=== PATIENT | male | born 1955 | race Caucasian/White ===

== ENCOUNTER 2020-09-24 19:26 | Emergency (ER) | payer MEDICARE, MEDICAID ==
--- NOTE | 2020-09-24 19:56 | EDM.PDOC ---
ED HPI GENERAL MEDICAL PROBLEM - General Chief Complaint: Lower Extremity Injury/Pain Stated Complaint: Left ankle pain Time Seen by Provider: 09/24/20 19:30 Source of Information: Reports: Patient, EMS History Limitations: Reports: No Limitations - History of Present Illness INITIAL COMMENTS - FREE TEXT/NARRATIVE: Pt slipped on the ice and fell Complains of left ankle pain Has previous old injury and tibial blanca in place No other complaints No LOC Onset: Today, Sudden Duration: Minutes: Location: Reports: Lower Extremity, Left Quality: Reports: Throbbing Severity: Moderate Improves with: Reports: Immobilization Worsens with: Reports: Movement Context: Reports: Trauma Left Ankle Pain Score (Numeric/FACES): 7 Social & Family History - Tobacco Use Tobacco Use Status *Q: Current Every Day Tobacco User Years of Tobacco use: 45 Packs/Tins Daily: 1 - Caffeine Use Caffeine Use: Reports: Coffee - Recreational Drug Use Recreational Drug Use: No Review of Systems - Review of Systems Review Of Systems: See Below Constitutional: Reports: No Symptoms Ears: Reports: No Symptoms Nose: Reports: No Symptoms Mouth/Throat: Reports: No Symptoms Respiratory: Reports: No Symptoms Cardiovascular: Reports: No Symptoms GI/Abdominal: Reports: No Symptoms Genitourinary: Reports: Vaginal Bleeding Musculoskeletal: Reports: Leg Pain, Joint Pain Neurological: Reports: No Symptoms ED EXAM, GENERAL - Physical Exam Exam: See Below Exam Limited By: No Limitations General Appearance: Alert, WD/WN, Mild Distress Eye Exam: Bilateral Eye: EOMI, PERRL Ears: Normal External Exam Nose: Normal Inspection Throat/Mouth: Normal Oropharynx Head: Atraumatic Neck: Supple, Non-Tender Respiratory/Chest: Lungs Clear Cardiovascular: Regular Rate, Rhythm GI/Abdominal: Soft, Non-Tender Back Exam: Normal Inspection Extremities: Other (Left ankle with moderate swelling No deformity Tender with palpation Neurovascular intact) Neurological: Alert, Oriented, Normal Cognition Psychiatric: Normal Affect, Normal Mood Course - Vital Signs Last Recorded V/S: Last Vital Signs Temp 98.4 F 09/24/20 19:28 Pulse 94 09/24/20 19:28 Resp 14 09/24/20 19:28 BP 161/84 H 09/24/20 19:28 Pulse Ox 91 L 09/24/20 19:28 - Orders/Labs/Meds Orders: Active Orders 24 hr Category Date Time Status Ankle Min 3V Lt [CR] Stat Exams 09/24/20 19:27 Ordered - Re-Assessments/Exams Free Text/Narrative Re-Assessment/Exam: 09/24/20 19:53 Splint boot placed per nursing Will await xray report Questionable tibia irregularity Departure - Departure Time of Disposition: 20:00 Disposition: Home, Self-Care 01 Clinical Impression: Ankle pain, left Qualifiers: Chronicity: acute Qualified Code(s): M25.572 - Pain in left ankle and joints of left foot - Discharge Information *PRESCRIPTION DRUG MONITORING PROGRAM REVIEWED*: Not Applicable *COPY OF PRESCRIPTION DRUG MONITORING REPORT IN PATIENT ANNA: Not Applicable Instructions: Ankle Pain, Joint Pain, [id number], Cast or Splint Care, Adult, [id number] Referrals: Mariann Valladares NP [Primary Care Provider] - Additional Instructions: Usual pain medication as needed Follow up in clinic Ice as needed Elevate Sepsis Event Note (ED) - Evaluation Sepsis Screening Result: No Definite Risk - Focused Exam Vital Signs: Vital Signs Temp Pulse Resp BP Pulse Ox 09/24/20 19:28 98.4 F 94 14 161/84 H 91 L - My Orders Last 24 Hours: My Active Orders 09/24/20 19:27 Ankle Min 3V Lt [CR] Stat - Assessment/Plan Last 24 Hours: My Active Orders 09/24/20 19:27 Ankle Min 3V Lt [CR] Stat
== END 2020-09-24 20:45 | disposition home or self-care (01) ==
LOC: LL.ED 19:26 → MERGE 19:26 → LL.ED 20:45
DX: M25.572 Pain in left ankle and joints of left foot (principal); M79.89 Other specified soft tissue disorders; Z72.0 Tobacco use; W00.0XXA Fall on same level due to ice and snow, initial encounter
CPT/HCPCS: 73610-LT; 99284

== ENCOUNTER 2023-12-06 05:00 | Emergency (ER) | payer MEDICARE, MEDICAID ==
[2023-12-06 05:25] LABS: BASOPHILS ABSOLUTE AUTO 0.02 K/uL (0.00-0.20); BASOPHILS PERCENT AUTO 0.2 % (0.0-2.0); EOSINOPHILS ABSOLUTE AUTO 0.15 K/uL (0.00-0.50); EOSINOPHILS PERCENT AUTO 1.5 % (0.0-5.0); HEMATOCRIT 45.8 % (39.0-49.0); HEMOGLOBIN 15.5 g/dL (13.1-16.8); LYMPHOCYTES ABSOLUTE AUTO 0.85 K/uL (0.50-3.50); LYMPHOCYTES PERCENT AUTO 8.5 % (10.0-50.0); MEAN CORPUSCULAR HEMOGLOBIN 31.8 pg (28.2-33.3); MEAN CORPUSCULAR HGB CONC 33.8 g/dL (31.7-36.0); MEAN CORPUSCULAR VOLUME 93.9 fL (84.0-98.0); MONOCYTES ABSOLUTE AUTO 0.86 K/uL (0.00-1.00); MONOCYTES PERCENT AUTO 8.6 % (2.0-14.0); NEUTROPHILS ABSOLUTE AUTO 8.17 K/uL (1.40-7.00); NEUTROPHILS PERCENT AUTO 81.2 % (45.0-80.0); PLATELET COUNT,PLT 153 K/uL (150-350); RED BLOOD CELL COUNT 4.88 M/uL (4.33-5.41); RED CELL DISTRIBUTION WIDTH 13.5 % (11.2-14.1); WHITE BLOOD CELL COUNT,WBC 10.1 K/uL (4.0-10.2)
[2023-12-06 05:34] LABS: PROTHROMBIN TIME 10.2 SEC (9.0-11.1)
[2023-12-06] MEDS ORDERED: Naloxone 0.4 MG/ML SDV IVPUSH PRN (05:36)
[2023-12-06] MEDS: fentaNYL 50 MCG/ML SDV IVPUSH ONE ×2 (05:41→06:10)
[2023-12-06 05:49] LABS: ALBUMIN 3.6 g/dL (3.4-5.0); BILIRUBIN TOTAL 0.2 mg/dL (0.2-1.0); CALCIUM 8.9 mg/dL (8.5-10.1); CREATININE 0.86 mg/dL (0.51-1.17); EST CRCL DRUG DOSING (CG) 79.75 mL/min; ETHANOL BLOOD MEDICAL 0.171 g/dL (0.000-0.080); POTASSIUM,K 3.7 mmol/L (3.5-5.1); PROTEIN TOTAL,TP 7.3 g/dL (6.4-8.2)
[2023-12-06] MEDS ORDERED: Thiamine 100 MG in Sodium Chloride 0.9% 100 ML IV ONE (05:55)
[2023-12-06] MEDS ORDERED: MVI, Adult with Vitamin K 10 ML SDV IV ONE (06:00)
[2023-12-06] MEDS ORDERED: Folic Acid 50 MG/10 ML MDV IV SCH (06:00)
[2023-12-06 06:02] LABS: APPEARANCE,URINE CLEAR; BILIRUBIN,URINE NEGATIVE (NEGATIVE); COLOR,URINE YELLOW; GLUCOSE,URINE NEGATIVE (NEGATIVE); KETONES,URINE NEGATIVE (NEGATIVE); LEUKOCYTE ESTERASE,URINE NEGATIVE (NEGATIVE); NITRITE,URINE NEGATIVE (NEGATIVE); OCCULT BLOOD,URINE NEGATIVE (NEGATIVE); PH,URINE 5.5 (5.0-9.0); PROTEIN,URINE NEGATIVE (NEGATIVE); UROBILINOGEN,URINE 0.2 E.U./dL (0.2-1.0)
[2023-12-06 06:15] LABS: AMPHETAMINES SCREEN, URINE NEGATIVE (NEGATIVE); BARBITURATE SCREEN,URINE NEGATIVE (NEGATIVE); BENZODIAZEPINES SCREEN,URINE NEGATIVE (NEGATIVE); COCAINE METABOLITES,URINE NEGATIVE (NEGATIVE); EDDP,URINE SCREEN NEGATIVE (NEGATIVE); METHAMPHETAMINES SCREEN, URINE NEGATIVE (NEGATIVE); TCA SCREEN,URINE NEGATIVE (NEGATIVE); THC SCREEN,URINE 50 NG/ML NEGATIVE (NEGATIVE)
[2023-12-06] MEDS ORDERED: WATER IV ONE (06:15)
[2023-12-06] MEDS ORDERED: MVI IV ONE (06:15)
[2023-12-06] MEDS ORDERED: DEXTROSE IV ONE (06:15)
[2023-12-06] MEDS ORDERED: VITAMIN K IV ONE (06:15)
[2023-12-06 06:34] LABS: OXYCODONE SCREEN,URINE POSITIVE (NEGATIVE)
[2023-12-06 06:35] LABS: BUPRENORPHINE SCREEN,URINE NEGATIVE (NEGATIVE)
[2023-12-06] MEDS: Sodium Chloride 0.9% 1,000 ML IV ONE (06:44)
== END 2023-12-06 06:55 ==
LOC: LL.ED 05:00
DX: S00.91XA Abrasion of unspecified part of head, initial encounter (principal); G95.19 Other vascular myelopathies; R20.2 Paresthesia of skin; I10 Essential (primary) hypertension; J44.9 Chronic obstructive pulmonary disease, unspecified; K21.9 Gastro-esophageal reflux disease without esophagitis; E78.00 Pure hypercholesterolemia, unspecified; Z88.8 Allergy status to other drugs, medicaments and biological substances; Z91.018 Allergy to other foods; Z79.899 Other long term (current) drug therapy
CPT/HCPCS: 36415; 70450; 71045; 72125; 80053; 80305-QW; 80307; 81003; 85025; 85610; 93005; 93010; 96374; 99284; 99285-25; J3010; J7030

== ENCOUNTER 2024-03-26 09:28 | Emergency (ER) | payer MEDICARE, MEDICAID | END 2024-03-26 09:35 | disposition left against medical advice (07) | LOC: LL.ED 09:28 | DX: Z53.21 Procedure and treatment not carried out due to patient leaving prior to being seen by health care provider (principal) ==